=== PATIENT | female | born 1990 | race African-American/Black ===

== ENCOUNTER 2020-02-15 13:52 | Emergency (ER) | payer SELFPAY ==
[2020-02-15 14:26] LABS: Bilirubin Negative (Negative); Blood, Urine Negative (Negative); Clarity Clear (Clear); Glucose, Urine (Dipstick) Negative (Negative); Leukocyte Negative (Negative); Nitrite Negative (Negative); Protein, Urine (Dipstick) Negative (Neg-Trace); Urobilinogen 0.2 mg/dL (Less than 2)
--- NOTE | 2020-02-15 16:00 | RAD ---
ACUTE ABDOMINAL SERIES: DATE: 02/15/2020. PROVIDED CLINICAL HISTORY: Lower back pain. FINDINGS: Evaluation is limited by patient body habitus. Cardiac and mediastinal silhouette is within normal l imits. No focal consolidation, pleural fluid, or pneumothorax apparent. Supine and upright abdominal radiographs demonstrate a nonspecific bowel gas pattern. No evidence fo r pneumoperitoneum. Surgical blips are seen in the right upper quadrant. No radiographically appare nt urinary tract calculi. Presumed phlebolith overlying the left hemipelvis. IMPRESSION: 1. No evidence for an acute cardiopulmonary process. 2. Nonspecific bowel gas pattern. POS: [id number]
== END 2020-02-15 16:02 | disposition home or self-care (01) ==
LOC: NAV ERS 13:52
DX: M54.5 Low back pain (principal); R35.0 Frequency of micturition; F41.9 Anxiety disorder, unspecified; R10.30 Lower abdominal pain, unspecified
CPT/HCPCS: 74022; 81003

== ENCOUNTER 2020-03-19 09:38 | Emergency (ER) | payer SELFPAY | END 2020-03-19 10:06 | disposition home or self-care (01) | LOC: NAV ERS 09:38 | DX: J30.2 Other seasonal allergic rhinitis (principal); F41.9 Anxiety disorder, unspecified | CPT/HCPCS: 99283 ==

== ENCOUNTER 2020-07-12 18:27 | Emergency (ER) | payer SELFPAY | END 2020-07-12 19:10 | disposition home or self-care (01) | LOC: NAV ERS 18:27 | DX: L03.012 Cellulitis of left finger (principal) | CPT/HCPCS: 99283 ==